=== PATIENT | male | born 1960 | race Caucasian/White ===

== ENCOUNTER 2017-11-25 16:22 | Emergency (ER) | payer BC ==
[2017-11-25] MEDS ORDERED: Aspirin 81 MG Tab.Chew ONE (16:28)
[2017-11-25] MEDS ORDERED: Nitroglycerin 0.4 MG Tab.SL ONE (16:28)
[2017-11-25] MEDS ORDERED: Sodium Chloride 0.9% 10 ML Syringe FLUSH PRN (16:30)
[2017-11-25] MEDS ORDERED: Aspirin 81 MG Tab.Chew PO ONE (16:30)
[2017-11-25] MEDS ORDERED: Sodium Chloride 0.9% 2.5 ML Syringe FLUSH PRN (16:30)
[2017-11-25] MEDS: Nitroglycerin 0.4 MG Tab.SL SL ONE ×3 (16:31→16:42)
[2017-11-25] MEDS: Metoprolol Tartrate 5 MG/5 ML SDV IVPUSH SCH ×3 (16:46→16:57)
--- NOTE | 2017-11-25 16:46 | EDM.PDOC ---
ED HPI GENERAL MEDICAL PROBLEM - General Chief Complaint: Chest Pain Stated Complaint: CHEST PAIN Time Seen by Provider: 11/25/17 16:26 Source of Information: Reports: Patient History Limitations: Reports: No Limitations - History of Present Illness INITIAL COMMENTS - FREE TEXT/NARRATIVE: History of present illness: []Patient has had been having intermittent chest pain for the past 2 weeks with exertion noted while he was hunting. Today he was sitting down 40 minutes prior to arrival and he started having 7/10 chest tightness in his left anterior chest with diaphoresis. He denies any shortness of breath, dizziness, lightheadedness, numbness or tingling. Patient states that he quit drinking about 16 years ago and has not seen a doctor since. He has a family history of coronary artery disease, his father had pacemaker and bypass in his 70's. Patient states he is a smoker. He should states couple weeks ago he has had a runny nose without cough or fever other than this he has not had any recent illnesses. Review of systems: As per history of present illness and below otherwise all systems reviewed and negative. Past medical history: As per history of present illness and as reviewed below otherwise noncontributory. Surgical history: As per history of present illness and as reviewed below otherwise noncontributory. Social history: No reported history of drug or alcohol abuse. Family history: As per history of present illness and as reviewed below otherwise noncontributory. Physical exam: General: Well developed, well nourished, diaphoretic HEENT: Atraumatic, normocephalic, pupils reactive, negative for conjunctival pallor or scleral icterus, mucous membranes moist, throat clear, neck supple, nontender, trachea midline. Lungs: Clear to auscultation, breath sounds equal bilaterally, chest nontender. Heart: S1S2, regular, negative for clicks, rubs, or JVD. Abdomen: Soft, nondistended, nontender. Negative for masses or hepatosplenomegaly. Negative for costovertebral tenderness. Pelvis: Stable nontender. Genitourinary: Deferred. Rectal: Deferred. Extremities: Atraumatic, negative for cords or calf pain. Neurovascular unremarkable. Neuro: Awake, alert, oriented. Cranial nerves II through XII unremarkable. Cerebellum unremarkable. Motor and sensory unremarkable throughout. Exam nonfocal. Given this patient's history, vital signs and exam I went ahead and started to transfer at 16:[address] [facility] Dr. Pitt asked that I hold off the transfer and get his blood pressure down first. After nitroglycerin and Lopressor his pain decreased to 1/10 and blood pressure to 186/112. I called [facility] dispatch again at 17 :20 and patient was accepted by Dr. Torres. Patient then stated he prefers go to [facility] in [place]. Dr. Askew is at the bedside as a personal friend and agrees with his decision. At 17:30 at [facility] ER excepts the patient. 17:40 transport team is at the bedside preparing him for transport. After patient was told he was having a heart attack and needed to be transferred patient started having worsening chest pain 5/10. Nitro drip was increased and morphine was given he was also given Ativan for his anxiety. At this point patient was hooked up to the flight team's monitors and they did note ST elevations in V1-3 with reciprocal changes in V4-6 Diagnostics: []CBC, CMP, troponin, BNP, EKG and chest x-ray done, is +1.[address] depressions Therapeutics: []Aspirin, nitroglycerin and Lopressor given on arrival. I took glycerin drip and heparin drip begun. Impression: []Non-STEMI. Plan: []Transport to [facility] accepted by Dr. Rees Definitive disposition and diagnosis as appropriate pending reevaluation and review of above. Left Chest Pain Score (Numeric/FACES): 8 - Related Data Allergies Allergy/AdvReac Type Severity Reaction Status Date / Time No Known Allergies Allergy Verified 11/25/17 16:31 Home Meds: Home Meds . [No Known Home Meds] 11/25/17 [History] Past Medical History - Past Health History Medical/Surgical History: Denies Medical/Surgical History Social & Family History - Family History Family Medical History: Noncontributory - Tobacco Use Smoking Status *Q: Never Smoker - Recreational Drug Use Recreational Drug Use: No ED ROS GENERAL - Review of Systems Review Of Systems: See Below (See history of present illness) ED EXAM, GENERAL - Physical Exam Exam: See Below (See history of present illness) Course - Vital Signs Last Recorded V/S: Last Vital Signs Temp 98.1 F 11/25/17 17:47 Pulse 61 11/25/17 17:53 Resp 18 11/25/17 17:53 BP 181/110 H 11/25/17 17:53 Pulse Ox 92 L 11/25/17 17:53 - Orders/Labs/Meds Orders: Active Orders 24 hr Category Date Time Status EKG Documentation Completion [RC] STAT Care 11/25/17 16:30 Active EKG Documentation Completion [RC] STAT Care 11/25/17 17:10 Active Chest 1V Frontal [CR] Stat Exams 11/25/17 16:30 Taken Saline Lock Insert [OM.PC] Stat Oth 11/25/17 16:30 Ordered Labs: Laboratory Tests 11/25/17 11/25/17 11/25/17 Range/Units 16:25 16:25 16:25 WBC 13.37 H (4.0-11.0) K/uL RBC 5.21 (4.50-5.90) M/uL Hgb 17.0 (13.0-17.0) g/dL Hct 47.2 (38.0-50.0) % MCV 90.6 (80.0-98.0) fL MCH 32.6 H (27.0-32.0) pg MCHC 36.0 (31.0-37.0) g/dL RDW Std Deviation 48.1 (28.0-62.0) fl RDW Coeff of Teresa 15 (11.0-15.0) % Plt Count 304 (150-400) K/uL MPV 10.20 (7.40-12.00) fL Neut % (Auto) 56.1 (48.0-80.0) % Lymph % (Auto) 31.8 (16.0-40.0) % Sabine % (Auto) 9.2 (0.0-15.0) % Eos % (Auto) 2.0 (0.0-7.0) % Baso % (Auto) 0.9 (0.0-1.5) % Neut # (Auto) 7.5 H (1.4-5.7) K/uL Lymph # (Auto) 4.3 H (0.6-2.4) K/uL Sabine # (Auto) 1.2 H (0.0-0.8) K/uL Eos # (Auto) 0.3 (0.0-0.7) K/uL Baso # (Auto) 0.1 (0.0-0.1) K/uL Nucleated RBC % 0.0 /100WBC Nucleated RBCs # 0 K/uL INR 1.04 (0.86-1.11) Sodium 142 (136-146) mmol/L Potassium 3.5 (3.5-5.1) mmol/L Chloride 107 (98-110) mmol/L Carbon Dioxide 24 (21-31) mmol/L BUN 12 (6.0-23.0) mg/dL Creatinine 1.0 (0.6-1.5) mg/dL Est Cr Clr Drug Dosing 80.75 mL/min Estimated GFR (MDRD) > 60.0 ml/min Glucose 99 (60-110) mg/dL Calcium 9.2 (8.8-10.8) mg/dL Total Bilirubin 0.6 (0.1-1.5) mg/dL AST 22 (5-40) IU/L ALT 26 (8-54) IU/L Alkaline Phosphatase 71 (40-150) Troponin I 1.11 H* (0.0-0.29) NG/ML B-Natriuretic Peptide (<100) PG/ML Total Protein 7.9 (6.0-8.0) g/dL Albumin 4.2 (3.5-5.0) g/dL Globulin 3.7 H (2.0-3.5) g/dL Albumin/Globulin Ratio 1.1 L (1.3-2.8) 11/25/17 Range/Units 16:25 WBC (4.0-11.0) K/uL RBC (4.50-5.90) M/uL Hgb (13.0-17.0) g/dL Hct (38.0-50.0) % MCV (80.0-98.0) fL MCH (27.0-32.0) pg MCHC (31.0-37.0) g/dL RDW Std Deviation (28.0-62.0) fl RDW Coeff of Teresa (11.0-15.0) % Plt Count (150-400) K/uL MPV (7.40-12.00) fL Neut % (Auto) (48.0-80.0) % Lymph % (Auto) (16.0-40.0) % Sabine % (Auto) (0.0-15.0) % Eos % (Auto) (0.0-7.0) % Baso % (Auto) (0.0-1.5) % Neut # (Auto) (1.4-5.7) K/uL Lymph # (Auto) (0.6-2.4) K/uL Sabine # (Auto) (0.0-0.8) K/uL Eos # (Auto) (0.0-0.7) K/uL Baso # (Auto) (0.0-0.1) K/uL Nucleated RBC % /100WBC Nucleated RBCs # K/uL INR (0.86-1.11) Sodium (136-146) mmol/L Potassium (3.5-5.1) mmol/L Chloride (98-110) mmol/L Carbon Dioxide (21-31) mmol/L BUN (6.0-23.0) mg/dL Creatinine (0.6-1.5) mg/dL Est Cr Clr Drug Dosing mL/min Estimated GFR (MDRD) ml/min Glucose (60-110) mg/dL Calcium (8.8-10.8) mg/dL Total Bilirubin (0.1-1.5) mg/dL AST (5-40) IU/L ALT (8-54) IU/L Alkaline Phosphatase (40-150) Troponin I (0.0-0.29) NG/ML B-Natriuretic Peptide 183 H (<100) PG/ML Total Protein (6.0-8.0) g/dL Albumin (3.5-5.0) g/dL Globulin (2.0-3.5) g/dL Albumin/Globulin Ratio (1.3-2.8) Meds: Medications Discontinued Medications Generic Name Dose Route Start Last Admin Trade Name Brandonq PRN Reason Stop Dose Admin Aspirin 324 mg 11/25/17 16:30 11/25/17 16:37 Aspirin PO 11/25/17 16:31 324 mg ONETIME ONE Administration Aspirin Confirm 11/25/17 16:28 11/25/17 16:41 Aspirin Administered 11/25/17 16:29 Not Given Dose 324 mg .ROUTE .STK-MED ONE Heparin Sodium (Porcine) 4,000 units 11/25/17 17:30 11/25/17 17:37 Heparin Sodium IVPUSH 11/25/17 17:31 4,000 units .BOLUS ONE Administration Protocol Nitroglycerin/Dextrose 25 mg in 250 mls @ 3 mls/hr 11/25/17 17:00 11/25/17 17 :29 Nitroglycerin 25 Mg/D5w 250 Ml IV 10 mcg/min TITRATE FANNIE 6 mls/hr Protocol Titration 5 MCG/MIN Nitroglycerin/Dextrose Confirm 11/25/17 16:57 11/25/17 17:10 Nitroglycerin 25 Mg/D5w 250 Ml Administered 11/25/17 16:58 Not Given Dose 25 mg in 250 mls @ as directed .ROUTE .STK-MED ONE Heparin Sod,Pork In 0.45% Nacl 25,000 unit in 500 mls @ 20.01 mls/hr 11/25/17 17:30 11/25/17 17:39 Heparin-1/2ns 25,000 Units/500 IV 8.7 units/kg/hr TITRATE FANNIE 20.01 mls/hr Protocol Administration 8.7 UNITS/KG/HR Lorazepam 1 mg 11/25/17 17:24 11/25/17 17:29 Ativan IVPUSH 11/25/17 17:25 1 mg ONETIME ONE Administration Lorazepam Confirm 11/25/17 17:26 11/25/17 17:38 Ativan Administered 11/25/17 17:27 Not Given Dose 2 mg .ROUTE .STK-MED ONE Metoprolol Tartrate 5 mg 11/25/17 16:45 11/25/17 16:57 Lopressor IVPUSH 11/25/17 16:56 5 mg Q5M FANNIE Administration Morphine Sulfate 4 mg 11/25/17 17:24 11/25/17 17:29 Morphine IVPUSH 11/25/17 17:25 4 mg ONETIME ONE Administration Morphine Sulfate Confirm 11/25/17 17:25 11/25/17 17:38 Morphine Administered 11/25/17 17:26 Not Given Dose 4 mg .ROUTE .STK-MED ONE Morphine Sulfate 4 mg 11/25/17 17:42 11/25/17 17:46 Morphine IVPUSH 11/25/17 17:43 4 mg ONETIME ONE Administration Nitroglycerin 0.4 mg 11/25/17 16:30 11/25/17 16:42 Nitrostat SL 11/25/17 16:31 0.4 mg ONETIME ONE Administration Nitroglycerin Confirm 11/25/17 16:28 11/25/17 16:41 Nitrostat Administered 11/25/17 16:29 Not Given Dose 1.2 mg .ROUTE .STK-MED ONE Ondansetron HCl 4 mg 11/25/17 17:24 11/25/17 17:29 Zofran IVPUSH 11/25/17 17:25 4 mg ONETIME ONE Administration Ondansetron HCl Confirm 11/25/17 17:25 11/25/17 17:38 Zofran Administered 11/25/17 17:26 Not Given Dose 4 mg .ROUTE .STK-MED ONE Sodium Chloride 10 ml 11/25/17 16:30 Saline Flush FLUSH ASDIRECTED PRN Keep Vein Open Sodium Chloride 2.5 ml 11/25/17 16:30 Saline Flush FLUSH ASDIRECTED PRN Keep Vein Open Departure - Departure Time of Disposition: 17:50 Disposition: DC/Tfer to Acute Hospital 02 Reason for Transfer *Q: Primary PCI Indicated Condition: Good, Fair Clinical Impression: Acute [place] Qualifiers: Myocardial infarction ST status: non-ST elevation myocardial infarction Qualified Code(s): I21.4 - Non-ST elevation (NSTEMI) myocardial infarction Referrals: PCP,None [Primary Care Provider] - Forms: ED Department Discharge - My Orders Last 24 Hours: My Active Orders 11/25/17 16:30 EKG Documentation Completion [RC] STAT Chest 1V Frontal [CR] Stat Saline Lock Insert [OM.PC] Stat 11/25/17 17:10 EKG Documentation Completion [RC] STAT - Assessment/Plan Last 24 Hours: My Active Orders 11/25/17 16:30 EKG Documentation Completion [RC] STAT Chest 1V Frontal [CR] Stat Saline Lock Insert [OM.PC] Stat 11/25/17 17:10 EKG Documentation Completion [RC] STAT
[2017-11-25] MEDS ORDERED: Nitroglycerin/D5W 25 MG/250 ML BOTTLE ONE (16:57)
[2017-11-25] MEDS ORDERED: Nitroglycerin/D5W 250 ML IV SCH (17:00)
[2017-11-25] MEDS ORDERED: Nitroglycerin/D5W 25 MG/250 ML BOTTLE IV SCH (17:00)
[2017-11-25 17:03] LABS: CHLORIDE,CL 107 mmol/L (98-110); SODIUM,NA 142 mmol/L (136-146)
[2017-11-25] MEDS ORDERED: LORazepam 2 MG/ML MDV IVPUSH ONE (17:24)
[2017-11-25] MEDS ORDERED: Ondansetron 4 MG/2 ML SDV IVPUSH ONE (17:24)
[2017-11-25] MEDS ORDERED: Morphine 4 MG/ML Syringe IVPUSH ONE ×2 (17:24→17:42)
[2017-11-25] MEDS ORDERED: Ondansetron 4 MG/2 ML SDV ONE (17:25)
[2017-11-25] MEDS ORDERED: Morphine 4 MG/ML Syringe ONE (17:25)
[2017-11-25] MEDS ORDERED: LORazepam 2 MG/ML MDV ONE (17:26)
[2017-11-25] MEDS ORDERED: Heparin Sod,Pork In 0.45% Nacl 25,000 UNIT/500 ML IV.SOLN IV SCH (17:30)
[2017-11-25] MEDS ORDERED: Heparin Sodium 5,000 Units/ML Vial IVPUSH ONE (17:30)
--- NOTE | 2017-11-26 10:08 | CR ---
EXAM DATE: 11/25/17 PATIENT'S AGE: 57 Patient: BACILIO ORTEGA Facility: [place], [place] Site . Site : [id number] Study: XRay Chest [id number] 6:48:22 PM Ordering Physician: Dev Carroll Final Report: Indication: Chest pain Technique: Chest 1 view Comparison: 12/29/2012. Findings/Impression: Cardiovascular and mediastinum: Cardiomegaly with mild central pulmonary vascular congestion. Lungs and pleural space: No gross consolidation or pleural effusions. Bones and soft tissues: No significant change. Dictated by Dane Jacobson MD @ 11/25/2017 7:09:40 PM Dictated by: Dane Jacobson MD @ 11/25/2017 19:10:05 (Electronic Signature) Report Signed by Proxy. [email or web address]
== END 2017-11-25 17:55 ==
LOC: MW.ED 16:22
DX: I21.4 Non-ST elevation (NSTEMI) myocardial infarction (principal)
CPT/HCPCS: 36415; 71045; 80053; 83880; 84484; 85025; 85610; 93005; 96365; 96375; 99285; A9270; J1644; J2060; J2270; J2405